=== PATIENT | female | born 1960 | race Caucasian/White ===

== ENCOUNTER → 2017-12-03 | Outpatient (CLI) | payer SELFPAY ==
--- NOTE | 2017-12-04 10:04 | USB ---
Reason for exam: clinical finding. Indicated problem(s): palpable abnormality in the right breast. Physical Findings: Nurse Summary: 1cm nodule 11 o'clock movable (nurse dw). US Breast BILAT Right complete breast ultrasound includes all four quadrants, the retroareolar region and axilla. Finding demonstrates a 0.3 x 0.4 x 0.3cm cystic lesion with shadowing at 2 o'clock. Left complete breast ultrasound includes all four quadrants, the retroareolar region and axilla. Finding demonstrates no cystic or solid lesion seen. These results were verbally communicated with the patient on 12/04/17. ASSESSMENT: Incomplete: need additional imaging evaluation, BI-RAD 0 RECOMMENDATION: Follow-up diagnostic mammogram of both breasts. Ultrasound of the right breast in 3 months.
== END | disposition home or self-care (01) ==
LOC: RADUSWWP 15:49
PROVIDERS: ATTEND Obstetrics & Gynecology
DX: N60.29 Fibroadenosis of unspecified breast (principal)

== ENCOUNTER 2017-12-20 11:49 | Emergency (ER) | payer OTHER ==
[2017-12-20] MEDS ORDERED: SODIUM CHLORIDE 0.9% 1,000 ML IV ONE (12:29)
[2017-12-20] MEDS ORDERED: FAMOTIDINE 20 MG/2 ML VIAL IV STA (12:29)
[2017-12-20] MEDS ORDERED: methylPREDNISolone SOD SUCCI 125 MG/2 ML VIAL IV STA (12:29)
--- NOTE | 2017-12-20 12:55 | ED ---
Allergic Reaction HPI - General Chief complaint: Allergic Reaction Stated complaint: ALLERGIC REACTION Time Seen by Provider: 12/20/17 12:12 Source: patient Mode of arrival: wheelchair Limitations: no limitations - History of Present Illness Initial Comments: 57-year-old female patient presents to the emergency department today for evaluation of increased facial swelling and upper body rash. Patient underwent plastic surgery to her face on . Patient has been taking Keflex for prevention of postsurgical infection and since that time. Today patient developed increased swelling to her lips and developed a rash to her chest and arms. Patient states the rest is itchy. States she is not currently having any shortness of breath or throat swelling. Patient is unsure of her tongue is swollen. Patient denies any dizziness or weakness. Patient has not had any nausea or vomiting. Denies any wheezing. Denies any history of similar reaction when taking medications. - Related Data Previous Rx's Medication Instructions Recorded Dexamethasone [Decadron] 12 mg PO ONCE #2 tablet 12/20/17 EPINEPHrine [Epipen 2-Dwight] 0.3 mg IM ONCE PRN #2 auto.injct 12/20/17 Allergies Allergy/AdvReac Type Severity Reaction Status Date / Time cephalexin [From Keflex] Allergy Swelling Verified 12/20/17 13:04 Review of Systems ROS Statement: Those systems with pertinent positive or pertinent negative responses have been documented in the HPI. ROS Other: All systems not noted in ROS Statement are negative. Past Medical History Past Medical History: No Reported History History of Any Multi-Drug Resistant Organisms: None Reported Additional Past Surgical History / Comment(s): reconstructive surgery on neck Past Psychological History: No Psychological Hx Reported Smoking Status: Never smoker Past Alcohol Use History: None Reported Past Drug Use History: None Reported General Exam Limitations: no limitations General appearance: alert, in no apparent distress, other (This is a well- developed, well-nourished adult female patient in no acute distress. Vital signs upon presentation are temperature 99.4F, pulse 116, respirations 20, blood pressure 119/74, pulse ox 98% on room air.) Eye exam: Present: normal appearance, PERRL, EOMI. Absent: scleral icterus, conjunctival injection, periorbital swelling ENT exam: Present: normal oropharynx, mucous membranes moist, other (Patient has significant facial swelling surrounding the eyes, lips, and maxillary regions. No erythema. Tongue appears to be of normal size. No intraoral lesions.). Absent: normal exam Neck exam: Present: normal inspection. Absent: tenderness, meningismus, lymphadenopathy Respiratory exam: Present: normal lung sounds bilaterally, other (Respirations are even and unlabored. Lungs are clear to auscultation with no wheezing.). Absent: respiratory distress, wheezes, rales, rhonchi, stridor Cardiovascular Exam: Present: normal rhythm, tachycardia, normal heart sounds. Absent: systolic murmur, diastolic murmur, rubs, gallop, clicks GI/Abdominal exam: Present: soft, normal bowel sounds. Absent: distended, tenderness, guarding, rebound, rigid Neurological exam: Present: alert, oriented X3, CN II-XII intact Psychiatric exam: Present: normal affect, normal mood Skin exam: Present: warm, dry, intact, normal color, rash (There is an erythematous rash noted to the chest, slightly raised, also noted to the bilateral upper arms.) Course Vital Signs 12/20/17 12/20/17 12/20/17 11:53 12:56 14:21 Temperature 99.4 F Pulse Rate 116 H 85 88 Respiratory 20 18 18 Rate Blood Pressure 119/74 130/80 139/77 O2 Sat by Pulse 98 97 96 Oximetry 12/20/17 12/20/17 14:49 16:03 Temperature 97.1 F L Pulse Rate 100 115 H Respiratory 18 18 Rate Blood Pressure 126/69 127/68 O2 Sat by Pulse 96 95 Oximetry - Reevaluation(s) Reevaluation #1: 12/20/17 13:[address] Esquivel, patients plastic surgeon. He did not want to restart antibiotics. He approved patient receiving both pepcid and solumedrol. Medical Decision Making - Medical Decision Making 57-year-old female patient presented to the emergency department today for evaluation of increased facial swelling after starting Keflex yesterday. Patient is status post facial surgery to her eyelids and her ears. Physical examination did reveal periorbital swelling including both upper and lower lid edema. Generalized facial swelling as well as increased edema to the upper lip. Patient denied any tongue swelling, throat swelling, throat tingling, or abdominal pain. Patient had no trouble breathing. She was able to speak without difficulty. Patient was given IV steroids and Pepcid here in the emergency department. She did take 100 mg of by mouth Benadryl prior to arrival. After reevaluation patient had not had much improvement so we did administer IV Decadron and epinephrine. I did recommend admission for observation and repeat dosing of the steroids throughout the night. Patient and family requested to be discharged home instead. Patient will be discharged home with a prescription for Decadron to repeat in 48-72 hours as well as a 2 pack of epi pens. Did discuss return parameters and great detail. She is instructed to follow up with her plastic surgeon for recheck as soon as possible. She is instructed to follow-up with a primary care physician for recheck as soon as possible. She verbalizes understanding and agrees this plan. Disposition Clinical Impression: Allergic reaction, Facial swelling Disposition: HOME SELF-CARE Condition: Good Instructions: Epinephrine (By injection), General Allergic Reaction (ED) Additional Instructions: Complete medications as directed. If symptoms worsen or change proceed to the nearest emergency department. Follow-up with Dr. Esquivel for recheck as soon as possible. Follow-up with her primary care physician for recheck as soon as possible. Prescriptions: Dexamethasone [Decadron] 12 mg PO ONCE #2 tablet EPINEPHrine [Epipen 2-Dwight] 0.3 mg IM ONCE PRN #2 auto.injct PRN Reason: Allergic Reaction Is patient prescribed a controlled substance at d/c from ED?: No Referrals: Nonstaff,Physician [Primary Care Provider] - 1-2 days Time of Disposition: 15:39
[2017-12-20 12:57] VITALS: RESP 18
[2017-12-20] MEDS ORDERED: EPINEPHrine 1 MG/ML 1 ML AMP IM STA (13:54)
[2017-12-20] MEDS: DEXAMETHASONE SOD PHOSPHATE 10 MG/ML 1 ML VIAL IV STA ×2 (14:03→14:12)
[2017-12-20 16:04] VITALS: BP 127/68; PULSE 115; TEMP 97.1
== END 2017-12-20 16:04 | disposition home or self-care (01) ==
LOC: EC 11:49
DX: T78.40XA Allergy, unspecified, initial encounter (principal); R22.0 Localized swelling, mass and lump, head; Z98.890 Other specified postprocedural states; Z88.1 Allergy status to other antibiotic agents
CPT/HCPCS: 99284; 96374; 96375 ×2; 96361; 96372; J0171; J1100; J2930